=== PATIENT | female | born 1990 | race Asian ===

== ENCOUNTER 2024-08-29 06:37 | Outpatient (REF) | payer OTHER, SELFPAY ==
--- NOTE | ~2024-08-29 | US_ITS ---
CLINICAL HISTORY: .. US Renal Comparison: None Findings: Right kidney normal size and echotexture, 8.6 cm length. Left kidney normal size and echotexture, 10.0 cm length. Mild hydronephrosis of the right kidney. Normal color Doppler. Urinary bladder is unremarkable. Prevoid volume 550 mL. Postvoid volume 150 mL. Bilateral ureteral jets are visualized. IMPRESSION: 1. Mild hydronephrosis of the right kidney. 2. Mild postvoid residual within the urinary bladder. This document has been electronically signed by: Tamanna Le MD on 08/29/2024 14:18:31
== END 2024-08-29 06:38 | disposition home or self-care (01) ==
LOC: HO.UMASIMG 06:37
PROVIDERS: Visit Provider Family Medicine
DX: M54.50 Low back pain, unspecified (principal)
CPT/HCPCS: 76770

== ENCOUNTER → 2024-08-29 09:30 | Outpatient (BNV) | payer OTHER, SELFPAY | PROVIDERS: Visit Provider Radiology Diagnostic Radiology | DX: N13.30 Unspecified hydronephrosis (principal) | CPT/HCPCS: 76770 ==